=== PATIENT | male | born 1980 ===

== ENCOUNTER 2018-10-09 08:58 | Emergency (ER) | payer OTHER ==
[2018-10-09 09:05] VITALS: BMI 22.3
--- NOTE | 2018-10-09 09:52 | ED PDOC ---
HPI: Abdomen Time Seen by Provider: 10/09/18 09:05 Chief Complaint (Nursing): Abdominal Pain History Per: Patient Onset/Duration Of Symptoms: Other (1 month) Current Symptoms Are (Timing): Intermittent Episodes Location Of Pain/Discomfort: Other (Right inguinal) Quality Of Discomfort: Unable To Describe Associated Symptoms: denies: Fever, Nausea, Vomiting, Diarrhea, Constipation, Urinary Symptoms Exacerbating Factors: None Alleviating Factors: None Additional Complaint(s): Right inguinal pain assoc with swelling intermittently x 1 month. H/o right inguinal hernia repair 6 years ago, denies fever, nausea vomiting. Able to have BM and pass gas. Past Medical History Vital Signs: Last Vital Signs Temp 98.2 F 10/09/18 09:04 Pulse 76 10/09/18 09:04 Resp 18 10/09/18 09:04 BP 152/71 H 10/09/18 09:04 Pulse Ox 99 10/09/18 09:04 Primary Care Provider: FAMILY PROVIDER,NO - Surgical History Surgical History: Hernia Repair - Family History Family History: States: Unknown Family Hx - Home Medications Home Medications: Ambulatory Orders Medication Instructions Recorded Naproxen [Naprosyn] 500 mg PO Q12H #20 tab 10/09/18 - Allergies Allergies/Adverse Reactions: Allergies Allergy/AdvReac Type Severity Reaction Status Date / Time No Known Allergies Allergy Verified 10/09/18 09:07 Review of Systems Constitutional: Negative for: Fever Gastrointestinal: Positive for: Abdominal Pain. Negative for: Vomiting, Diarrhea, Constipation, Melena, Hematochezia Genitourinary Male: Negative for: Dysuria, Frequency Physical Exam - Physical Exam Appears: Positive for: Non-toxic, No Acute Distress Cardiovascular/Chest: Positive for: Regular Rate, Rhythm Respiratory: Positive for: CNT, Normal Breath Sounds Gastrointestinal/Abdominal: Positive for: Bowel Sounds, Soft, Hernia (Right inguinal hernia palpated, reducible) - Laboratory Results Result Diagrams: 10/09/18 10:05 10/09/18 10:05 - ECG O2 Sat by Pulse Oximetry: 99 Medical Decision Making Medical Decision Making: Right inguinal hernia, reducible. Will refer to surgery as outpt and tx with naprosyn for pain. pt instructed in Romansh to return to Ed immediately if he develops worsening pain, vomiting or unable to have BM or pass gas, Disposition - Clinical Impression Clinical Impression: Inguinal hernia - Patient ED Disposition Is Patient to be Admitted: No Counseled Patient/Family Regarding: Studies Performed, Diagnosis, Need For Followup, Rx Given - Disposition Referrals: [facility] [Outside] Jonny Brown MD [Staff Provider] - Disposition: Routine/Home Disposition Time: 11:24 Condition: FAIR Prescriptions: Naproxen [Naprosyn] 500 mg PO Q12H #20 tab Instructions: Inguinal and Femoral (Groin) Hernias Forms: [employer] (Congolese) Print Language: CZECH
[2018-10-09 10:15] LABS: BASO % 0.5 % (0.0-2.0); EOS # 0.1 K/uL (0.0-0.7); EOS % 2.1 % (0.0-4.0); HEMOGLOBIN 15.6 g/dL (12.0-18.0); LYMPH # 1.3 K/uL (1.0-4.3); LYMPH % 30.5 % (20.0-40.0); MEAN CELL VOLUME 93.2 fl (80.0-94.0); MEAN CORPUSCULAR HEMOGLOBIN 32.5 pg (27.0-31.0); MEAN CORPUSCULAR HGB CONC 34.8 g/dL (33.0-37.0); MEAN PLATELET VOLUME 7.2 fl (7.2-11.7); MONO # 0.4 K/uL (0.0-0.8); MONO % 9.2 % (0.0-10.0); NEUT # 2.5 K/uL (1.8-7.0); NEUT % 57.7 % (50.0-75.0); NRBC % 0.2 % (0.0-0.0); RBC 4.82 Mil/uL (4.40-5.90); RED CELL DISTRIBUTION WIDTH 12.5 % (11.5-14.5); WHITE BLOOD COUNT 4.3 K/uL (4.8-10.8)
[2018-10-09 10:29] LABS: ALBUMIN 4.6 g/dL (3.5-5.0); BLOOD UREA NITROGEN 15 mg/dl (9-20); CALCIUM 9.2 mg/dL (8.4-10.2); GFR NON-AFRICAN AMERICAN > 60
[2018-10-09 10:30] LABS: ALB/GLOB RATIO 1.5 (1.0-2.1); ALT/SGPT 44 U/L (21-72); AST/SGOT 29 U/L (17-59)
[2018-10-09] MEDS ORDERED: Iohexol 300 100 ML IJ ONE (10:37)
[2018-10-09] MEDS ORDERED: Sodium Chloride 0.9% 50 ML IV ONE (10:38)
--- NOTE | 2018-10-09 11:24 | CT ---
Date of service: 10/09/2018 PROCEDURE: CT Abdomen and Pelvis with contrast HISTORY: Abd pain COMPARISON: None. TECHNIQUE: Contrast dose: 95 mL Omnipaque 300 Radiation dose: Total exam DLP = 367.14 mGy-cm. This CT exam was performed using one or more of the following dose reduction techniques: Automated exposure control, adjustment of the mA and/or kV according to patient size, and/or use of iterative reconstruction technique. FINDINGS: LOWER THORAX: Unremarkable. LIVER: Unremarkable. No gross lesion or ductal dilatation. GALLBLADDER AND BILE DUCTS: Unremarkable. PANCREAS: Unremarkable. No gross lesion or ductal dilatation. SPLEEN: Unremarkable. ADRENALS: Unremarkable. No mass. KIDNEYS AND URETERS: Unremarkable. No hydronephrosis. No solid mass. VASCULATURE: Unremarkable. No aortic aneurysm. No aortic atherosclerotic calcification or mural plaque present. BOWEL: Moderate stool retention.. No obstruction. No possible minimal sub mucosal edema terminal ileum no Mary ileal fat inflammatory changes.-a mild ileitis here is 1 consideration.. APPENDIX: Normal appendix. PERITONEUM: Unremarkable. No free fluid. No free air. LYMPH NODES: Unremarkable. No enlarged lymph nodes. BLADDER: Unremarkable. REPRODUCTIVE: Unremarkable. BONES: No acute fracture. OTHER FINDINGS: No in the right groin a hernia is present. The contains fat. This also some vascular structures within it no bowel containing loops are appreciated. Some mild nonspecific inflammatory changes here are noted. Correlation recommended. IMPRESSION: No bowel obstruction seen. Mostly fat containing right groin hernia. No bowel containing hernias noted. Mild nonspecific inflammatory changes around the right groin hernia noted. No appendicitis. Possible mild right terminal ileitis. Correlate clinically with patient's symptoms and physical exam. Clinical follow-up here recommended.
[2018-10-09 11:45] VITALS: BP 148/72; PULSE 71; RESP 16; TEMP 98; O2SAT 98
== END 2018-10-09 11:45 | disposition home or self-care (01) ==
LOC: H.ER 08:58
DX: K40.90 Unilateral inguinal hernia, without obstruction or gangrene, not specified as recurrent (principal)
CPT/HCPCS: 74177; 80053; 85025; 99284; Q9967